=== PATIENT | female | born 1955 | race Asian ===

== ENCOUNTER 2016-12-19 10:24 | Day surgery (SDC) | payer OTHER ==
[2016-12-12 12:15] LABS: HEMATOCRIT 26.5 % (36.0-48.0); HEMOGLOBIN 9.1 g/dL (12.0-16.0)
[2016-12-12 12:29] LABS: CALCIUM, SERUM 8.6 MG/DL (8.5-10.4); CHLORIDE, SERUM 105 MMOL/L (96-112); CO2 (CARBON DIOXIDE) 20 MMOL/L (24-34); GFR AFRICAN AMERICAN 8 ML/MIN (>=60); GFR NON AFRICAN AMERICAN 7 ML/MIN (>=60); GLUCOSE, SERUM 86 MG/DL (60-99); POTASSIUM, SERUM 4.9 MMOL/L (3.5-5.3); SODIUM, SERUM 135 MMOL/L (135-148)
[2016-12-12 12:30] LABS: BUN (BLOOD UREA NITROGEN) 69 MG/DL (6-23); CREATININE 6.08 MG/DL (0.55-1.02)
--- NOTE | ~2016-12-19 | OP ---
Record Of Operation [facility] [address] [place]. [address] NAME: JAZMYN AGUIRRE : 59 STATUS : [facility] PAT#: [id number] AGE: 61 ADM/REG DATE : 12/19/16 MR#: [id number] REPORT SERV DATE: 12/20/16 DICTATED BY: JARRED JEROME II DATE: 12/19/16 REPORT STATUS : Draft TRANSCRIBED BY: MARIE DATE: 12/19/16 DATE OF PROCEDURE: 12/19/2016 CERTIFIED FAMILY MEDIATOR: Dr. Swanson. PREOPERATIVE DIAGNOSES: Chronic renal failure, stage 5 chronic kidney. POSTOPERATIVE DIAGNOSES: Chronic renal failure, stage 5 chronic kidney. PROCEDURE: 1. Creation of left upper extremity brachiocephalic arteriovenous fistula. 2. Intraoperative ultrasound. ANESTHESIA: Scalene block plus MAC anesthesia. EBL: 25. IV FLUIDS: 500. DETAILS OF THE PROCEDURE: The patient was taken to the operating room and placed in the supine position on the table. Left arm was prepped and draped in a sterile fashion. The ultrasound was used to map out the cephalic vein which measured 4.8 mm. The brachial artery measured 3.9 mm. We made an incision between the cephalic vein and brachial artery above the antecubital fossa. We mobilized the vein proximally and distally and then transected the vein distally and ligated it with 2-0 silk suture. We then flushed the vein. It dilated nicely. We then exposed the brachial artery and placed vessel loops, made an arteriotomy within the brachial artery and performed an end-to-side anastomosis between the brachial artery and cephalic vein using running 6-0 Prolene. We then flushed and released the clamps. There was a good thrill within the fistula. She maintained good flow at the left wrist. We thoroughly irrigated and closed with interrupted 3-0 Vicryl in the subdermal tissue and closed the skin with Monocryl. At the end of the procedure, the patient was stable. She had tolerated it well. KELSY/MARIE Jarred Jerome II, M.D. / [id number] CC: Darryn Kramer II, Jr., D.O.
[~2016-12-19 10:24] MED LIST: ASAB PO; COZAAR100 MG PO; LIPITOR20 PO; NORV10 PO; NORV5 PO; PHOSLO PO; ULORIC40 MG PO; ULORIC80 MG PO; VITAMIN D31000 UNIT PO
== END 2016-12-19 17:32 | disposition home or self-care (01) ==
LOC: SDC 10:24
PROVIDERS: Surgery
PROC: 03180ZD Bypass Left Brachial Artery to Upper Arm Vein, Open Approach (ICD-10-PCS; principal; 2016-12-19 13:15)
DX: I12.0 Hypertensive chronic kidney disease with stage 5 chronic kidney disease or end stage renal disease (principal); N18.5 Chronic kidney disease, stage 5; E78.00 Pure hypercholesterolemia, unspecified; K21.9 Gastro-esophageal reflux disease without esophagitis; D64.9 Anemia, unspecified; K76.89 Other specified diseases of liver; Z88.1 Allergy status to other antibiotic agents; Z79.82 Long term (current) use of aspirin; Z79.899 Other long term (current) drug therapy; Z98.890 Other specified postprocedural states
CPT/HCPCS: 80048; 85014; 85018; 93005; J2250; J2795; J3010; J3370